=== PATIENT | male | born 1945 | race Hispanic/Latino ===

== ENCOUNTER 2016-11-13 07:33 | Emergency (ER) | payer SELFPAY ==
[2016-11-13] MEDS ORDERED: NORCO 5/325 PO ONE (08:07)
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
[2016-11-13 10:41] VITALS: BP 126/71
== END 2016-11-13 10:42 | disposition home or self-care (01) ==
LOC: ED 07:33
DX: S39.012A Strain of muscle, fascia and tendon of lower back, initial encounter (principal); V89.2XXA Person injured in unspecified motor-vehicle accident, traffic, initial encounter; Y93.9 Activity, unspecified; Y99.9 Unspecified external cause status; Y92.410 Unspecified street and highway as the place of occurrence of the external cause
CPT/HCPCS: 72100